=== PATIENT | male | born 2000 | race Caucasian/White ===

== ENCOUNTER 2019-05-09 15:27 | Emergency (ER) | payer OTHER ==
[~2019-05-09] VITALS: Ht 193 cm; Wt 73.5 kg
[2019-05-09 16:35] VITALS: BP 129/77
== END 2019-05-09 16:35 | disposition home or self-care (01) ==
LOC: M.ERS 15:27
DX: S13.8XXA Sprain of joints and ligaments of other parts of neck, initial encounter (principal); V49.49XA Driver injured in collision with other motor vehicles in traffic accident, initial encounter; Y93.89 Activity, other specified; Y92.89 Other specified places as the place of occurrence of the external cause; Y99.8 Other external cause status